=== PATIENT | male | born 1970 | race Caucasian/White ===

== ENCOUNTER 2020-10-01 02:17 | Emergency (ER) | payer BC, SELFPAY ==
[2020-10-01 02:21] VITALS: BP 135/78; PULSE 67; RESP 16; TEMP 36.2; O2SAT 99
--- NOTE | 2020-10-01 03:13 | ED.EYEPROB ---
HPI - Eye Problem General Chief complaint: Eye Problems Stated complaint: left eye issue Time Seen by Provider: 10/01/20 02:49 Source: patient and RN notes reviewed Mode of arrival: ambulatory Limitations: no limitations History of Present Illness HPI Narrative: This is a 50 year old male contact lens user who presents for evaluation of left eye pain. He states around 10 pm last night he accidentally turned around and he was hit in left eye with tree branch. He immediately placed an ice pack and he took ibuprofen. He reports pain and light sensitivity. He is unsure if his contact lens is still in place. He is able to see out of left eye. Related Data Allergies Allergy/AdvReac Type Severity Reaction Status Date / Time No Known Allergies Allergy Verified 10/01/20 04:10 Review of Systems Review of Systems: All systems reviewed & are unremarkable except as noted in HPI and below PMFSH Past Medical History Medical History (Updated 10/01/20 @ 04:08 by Elisabeth Salas MD) ADHD (attention deficit hyperactivity disorder) Depression Retinal detachment Surgical History Surgical History (Updated 10/01/20 @ 03:16 by Elisabeth Salas MD) H/O eye surgery Social History Social History Smoking status: Never smoker Alcohol intake: never Exam Const: General: alert Orientation/consciousness: patient oriented x3 Eyes: Conjunctivae: conjunctival abnormality left conjunctival injection (medial) localized and subconjunctival hemorrhage Pupils: Equal, round and reactive pupils present EOM: EOMs intact bilaterally Direct Ophthalmoscopy: photophobia Other: left corneal abrasion just medial, no contact lens visualized Resp: Effort & Inspection: normal respiratory effort and no retractions Auscultation: clear to auscultation bilaterally Cardio: Rate: regular rate Rhythm: regular rhythm Heart sounds: no murmurs GI: GI Palp: Yes Soft to palpation, No Tenderness to palpation present (GI) and No Guarding due to palpation present (GI) Auscultation: normal bowel sounds Skin: General skin exam: normal color Rashes: no rashes Neuro: General: patient oriented x3, moves all extremities and CN's II-XI intact bilaterally Psych: Mental Status: mental status grossly normal Affect: normal affect Course Reevaluation(s) Reevaluation #1: I discussed with patient discharge plan and treatment along with follow with ophthalmology Date: 10/01/20 Time: 04:08 Vital Signs Vital signs: Vital Signs Temperature 97.1 F L 10/01/20 02:21 Pulse Rate 67 10/01/20 02:21 Respiratory Rate 16 10/01/20 02:21 Blood Pressure 135/78 10/01/20 02:21 Pulse Oximetry 99 10/01/20 02:21 Temperature 97.1 F L 10/01/20 02:21 Pulse Rate 75 10/01/20 04:18 Respiratory Rate 16 10/01/20 02:21 Blood Pressure 130/80 10/01/20 04:18 Pulse Oximetry 100 10/01/20 04:18 Discharge Plan Discharge Clinical Impression: Abrasion of cornea, left Qualifiers: Encounter type: initial encounter Qualified Code(s): S05.02XA - Injury of conjunctiva and corneal abrasion without foreign body, left eye, initial encounter Patient Disposition: Home, Self-Care Condition: Stable Instructions: Antibiotic Form, Corneal Abrasion (ED) Additional Instructions: Do not wear your contact lens in your left eye until you have finished treatment. It is recommended that you follow up with your cut off sawyer within 24-48 hours. Prescriptions: New ciprofloxacin HCl 0.3 % drops See Rx Instructions .ROUTE .COMPLEX Qty: 2.5 RF: 0 No Action cholecalciferol (vitamin D3) 50 mcg (2,000 unit) capsule 50 mcg PO DAILY Qty: 30 RF: 2 alprazolam [Xanax] 0.5 mg tablet 0.5 mg PO BID PRN (Reason: anxiety) Qty: 30 RF: 2 dextroamphetamine-amphetamine [Adderall] 15 mg tablet 15 mg PO BID Qty: 60 RF: 0 bupropion HCl 200 mg tablet sustained-release 12 hr See
[2020-10-01] MEDS: HYDROcodone/acetaminophen (*CRX) 5-325 MG TABLET 1 TAB PO (03:42)
[2020-10-01] MEDS: ONDANSETRON HCL ODT 4 MG TABLET PO (03:43)
[2020-10-01] MEDS: CIPROFLOXACIN HCL 0.3% OP SOLN 2.5 ML BTL 2 DROP LEFT EYE (03:44)
[2020-10-01] MEDS: TETANUS,DIPHTHERIA,AC PERTUSSIS ADULT (0.5 ML) BOOSTRIX IM (03:47)
[2020-10-01 04:18] VITALS: BP 130/80; PULSE 75; O2SAT 100
== END 2020-10-01 04:15 | disposition home or self-care (01) ==
PROVIDERS: Emergency Provider General Practice; PCP Emergency Medicine
DX: S05.02XA Injury of conjunctiva and corneal abrasion without foreign body, left eye, initial encounter (principal); Z23 Encounter for immunization; F90.9 Attention-deficit hyperactivity disorder, unspecified type; F32.9 Major depressive disorder, single episode, unspecified; W22.8XXA Striking against or struck by other objects, initial encounter
CPT/HCPCS: 90471; 90715; 99283; A9270